=== PATIENT | female | born 1955 | race Caucasian/White ===

== ENCOUNTER 2017-08-21 20:21 | Emergency (ER) | payer OTHER ==
[2017-08-21 22:03] LABS: ABS Basophils 0.1 10^3/ul (0-0.2); ABS Eosinophils 0.1 10^3/ul (0-0.6); ABS Monocytes 0.7 10^3/ul (0-0.8); ABS Neutrophils 14.2 10^3/ul (1.5-7.7); ABS Nucleated RBC 0 10^3/ul; Eosinophil % 0.4 % (0-6); Hematocrit 46 % (35-47); Hemoglobin 15.6 g/dl (12.0-16.0); Lymphocyte % 6.4 % (25-47); Mean Corpuscular HGB Conc 34 g/dl (31-36); Mean Corpuscular Hemoglobin 30 pg (27-31); Mean Corpuscular Volume 89 fL (80-97); Mean Platelet Volume 8 um3 (7.4-10.4); Nucleated Red Blood Cells % 0; Platelet Count 300 10^3/ul (150-450); Red Blood Count 5.13 10^6/ul (4.0-5.4); Red Cell Distribution Width 13 % (10.5-15)
[2017-08-21 22:19] LABS: EGFR Non-African American 78.3 (>60)
[2017-08-21 22:39] LABS: Urine Appearance Clear; Urine Blood 2+ (Negative); Urine Color Yellow; Urine Ketones Negative (Negative); Urine Protein Negative (Negative); Urine Specific Gravity 1.017 (1.010-1.030); Urine Urobilinogen Negative (Negative)
[2017-08-22] MEDS ORDERED: NS 0.9% 1000 ML* 1,000 ML IV ONE (01:25)
[2017-08-22] MEDS ORDERED: Pantoprazole IV* 40 MG IV ONE (01:25)
[2017-08-22] MEDS ORDERED: Morphine INJ* 4 MG/ML 1 ML CARPUJECT IV ONE (03:12)
[2017-08-22] MEDS ORDERED: Ondansetron INJ* 2 MG/ML VIAL IV ONE (03:12)
--- NOTE | 2017-08-22 06:51 | ED ---
Dawson Dangelo Nilda, scribed for Christi Garsia MD on 08/22/17 at 0327 . Abdominal Pain/Female - HPI Summary HPI Summary: This patient is a 62 year old F presenting from [facility] to [facility] with a chief complaint of constant epigastric pain since last night. The patient rates the pain 6/10 in severity. Symptoms aggravated by nothing and alleviated by rubbing abd. Patient reports nausea. She denies abnormal urination and back pain. - History of Current Complaint Chief Complaint: EDAbdPain Stated Complaint: ABD PAIN Time Seen by Provider: 08/22/17 01:10 Hx Obtained From: Patient Onset/Duration: Sudden Onset, Lasting Hours, Still Present Timing: Constant Severity Currently: Moderate Pain Intensity: 6 Pain Scale Used: 0-10 Numeric Location: Epigastric Radiates: No Aggravating Factor(s): Nothing Alleviating Factor(s): Other: - rubbing abdomen Associated Signs and Symptoms: Positive: Other: - nausea; negative abnormal urination and back pain Allergies/Adverse Reactions: Allergies Allergy/AdvReac Type Severity Reaction Status Date / Time No Known Allergies Allergy Verified 08/21/17 20:52 PMH/Surg Hx/FS Hx/Imm Hx Sensory History: Denies: Hx Legally Blind EENT History: Denies: Hx Deafness Infectious Disease History: No Infectious Disease History: Denies: Traveled Outside the [place] in Last 30 Days - Family History Known Family History: Positive: Hypertension - Social History Alcohol Use: None Substance Use Type: Reports: None Smoking Status (MU): Never Smoked Tobacco Review of Systems Positive: Abdominal Pain, Nausea Positive: other - negative abnormal urination Positive: Other - negative back pain All Other Systems Reviewed And Are Negative: Yes Physical Exam - Summary Physical Exam Summary: VITAL SIGNS: Reviewed. GENERAL: Patient is a well-developed and nourished female who is lying comfortable in the stretcher. Patient is not in any acute respiratory distress. HEAD AND FACE: No signs of trauma. No ecchymosis, hematomas or skull depressions. No sinus tenderness. EYES: PERRLA, EOMI x 2, No injected conjunctiva, no nystagmus. EARS: Hearing grossly intact. Ear canals and tympanic membranes are within normal limits. MOUTH: Oropharynx within normal limits. NECK: Supple, trachea is midline, no adenopathy, no JVD, no carotid bruit, no c- spine tenderness, neck with full ROM. CHEST: Symmetric, no tenderness at palpation LUNGS: Clear to auscultation bilaterally. No wheezing or crackles. CVS: Regular rate and rhythm, S1 and S2 present, no murmurs or gallops appreciated. ABDOMEN: Soft,epigastric tenderness. No signs of distention. No rebound no guarding, and no masses palpated. Bowel sounds are normal. EXTREMITIES: FROM in all major joints, no edema, no cyanosis or clubbing. NEURO: Alert and oriented x 3. No acute neurological deficits. Speech is normal and follows commands. Triage Information Reviewed: Yes Vital Signs On Initial Exam: Initial Vitals Temp Pulse Resp BP Pulse Ox 99.2 F 55 20 202/80 97 08/21/17 20:51 08/21/17 20:51 08/21/17 20:51 08/21/17 20:51 08/21/17 20:51 Vital Signs Reviewed: Yes - Simpson Coma Scale Coma Scale Total: 15 Diagnostics - Vital Signs Vital Signs Temp Pulse Resp BP Pulse Ox 08/21/17 22:13 98 F 56 99 08/21/17 20:51 99.2 F 55 20 97 - Laboratory Lab Results: Lab Results 08/21/17 08/21/17 08/21/17 Range/Units 21:50 21:50 21:50 WBC 16.0 H (3.5-10.8) 10^3/ul RBC 5.13 (4.0-5.4) 10^6/ul Hgb 15.6 (12.0-16.0) g/dl Hct 46 (35-47) % MCV 89 (80-97) fL MCH 30 (27-31) pg MCHC 34 (31-36) g/dl RDW 13 (10.5-15) % Plt Count 300 (150-450) 10^3/ul MPV 8 (7.4-10.4) um3 Neut % (Auto) 88.7 H (38-83) % Lymph % (Auto) 6.4 L (25-47) % [place] % (Auto) 4.2 (1-9) % Eos % (Auto) 0.4 (0-6) % Baso % (Auto) 0.3 (0-2) % Absolute Neuts (auto) 14.2 H (1.5-7.7) 10^3/ul Absolute Lymphs (auto) 1.0 (1.0-4.8) 10^3/ul Absolute Monos (auto) 0.7 (0-0.8) 10^3/ul Absolute Eos (auto) 0.1 (0-0.6) 10^3/ul Absolute Basos (auto) 0.1 (0-0.2) 10^3/ul Absolute Nucleated RBC 0 10^3/ul Nucleated RBC % 0 Sodium 133 (133-145) mmol/L Potassium 3.4 L (3.5-5.0) mmol/L Chloride 100 L (101-111) mmol/L Carbon Dioxide 26 (22-32) mmol/L Anion Gap 7 (2-11) mmol/L BUN 17 (6-24) mg/dL Creatinine 0.75 (0.51-0.95) mg/dL Est GFR ( Amer) 100.7 (>60) Est GFR (Non-Af Amer) 78.3 (>60) BUN/Creatinine Ratio 22.7 H (8-20) Glucose 162 H (70-100) mg/dL Lactic Acid 1.1 (0.5-2.0) mmol/L Calcium 9.1 (8.6-10.3) mg/dL Total Bilirubin 0.40 (0.2-1.0) mg/dL AST 15 (13-39) U/L ALT 28 (7-52) U/L Alkaline Phosphatase 70 (34-104) U/L C-Reactive Protein 2.10 (< 5.00) mg/L Total Protein 6.8 (6.4-8.9) g/dL Albumin 3.8 (3.2-5.2) g/dL Globulin 3.0 (2-4) g/dL Albumin/Globulin Ratio 1.3 (1-3) Lipase 16 (11.0-82.0) U/L Urine Color Urine Appearance Urine pH (5-9) Ur Specific [place] (1.010-1.030) Urine Protein (Negative) Urine Ketones (Negative) Urine Blood (Negative) Urine Nitrate (Negative) Urine Bilirubin (Negative) Urine Urobilinogen (Negative) Ur Leukocyte Esterase (Negative) Urine WBC (Auto) (Absent) Urine RBC (Auto) (Absent) Ur Squamous Epith Cells (Absent) Urine Bacteria (Absent) Urine Glucose (Negative) 08/21/17 08/22/17 Range/Units 22:19 02:06 WBC (3.5-10.8) 10^3/ul RBC (4.0-5.4) 10^6/ul Hgb (12.0-16.0) g/dl Hct (35-47) % MCV (80-97) fL MCH (27-31) pg MCHC (31-36) g/dl RDW (10.5-15) % Plt Count (150-450) 10^3/ul MPV (7.4-10.4) um3 Neut % (Auto) (38-83) % Lymph % (Auto) (25-47) % [place] % (Auto) (1-9) % Eos % (Auto) (0-6) % Baso % (Auto) (0-2) % Absolute Neuts (auto) (1.5-7.7) 10^3/ul Absolute Lymphs (auto) (1.0-4.8) 10^3/ul Absolute Monos (auto) (0-0.8) 10^3/ul Absolute Eos (auto) (0-0.6) 10^3/ul Absolute Basos (auto) (0-0.2) 10^3/ul Absolute Nucleated RBC 10^3/ul Nucleated RBC % Sodium (133-145) mmol/L Potassium (3.5-5.0) mmol/L Chloride (101-111) mmol/L Carbon Dioxide (22-32) mmol/L Anion Gap (2-11) mmol/L BUN (6-24) mg/dL Creatinine (0.51-0.95) mg/dL Est GFR ( Amer) (>60) Est GFR (Non-Af Amer) (>60) BUN/Creatinine Ratio (8-20) Glucose (70-100) mg/dL Lactic Acid 1.2 (0.5-2.0) mmol/L Calcium (8.6-10.3) mg/dL Total Bilirubin (0.2-1.0) mg/dL AST (13-39) U/L ALT (7-52) U/L Alkaline Phosphatase (34-104) U/L C-Reactive Protein (< 5.00) mg/L Total Protein (6.4-8.9) g/dL Albumin (3.2-5.2) g/dL Globulin (2-4) g/dL Albumin/Globulin Ratio (1-3) Lipase (11.0-82.0) U/L Urine Color Yellow Urine Appearance Clear Urine pH 5.0 (5-9) Ur Specific [place] 1.017 (1.010-1.030) Urine Protein Negative (Negative) Urine Ketones Negative (Negative) Urine Blood 2+ H (Negative) Urine Nitrate Negative (Negative) Urine Bilirubin Negative (Negative) Urine Urobilinogen Negative (Negative) Ur Leukocyte Esterase Negative (Negative) Urine WBC (Auto) Trace(0-5/hpf) (Absent) Urine RBC (Auto) 2+(6-10/hpf) H (Absent) Ur Squamous Epith Cells Present H (Absent) Urine Bacteria Absent (Absent) Urine Glucose Negative (Negative) Result Diagrams: 08/21/17 21:50 08/21/17 21:50 Lab Statement: Any lab studies that have been ordered have been reviewed, and results considered in the medical decision making process. - CT Abd/Pel CT Interpretation Completed By: Radiologist - Possible cholecystitis can be further evaluated with ultrasound. Dr. Garsia has reviewed this report. Re-Evaluation - Re-Evaluation First Eval Comment: Discussed pt CT findings. Pt states pain still there though slightly better. Abdominal Pain Fem Course/Dx - Course Course Of Treatment: Pt is a 62 y/o F c/o epigastric pain since 1900 last night. On exam pt had epigastric tenderness. Labs reveal high white count, leukocytosis. CT reveal gall stones and possible cholecystitis. Pt will have US for further evaluation in the morning. Dx cholelithiasis. Pt is s/o to Dr. Dean, pending dispo, awaiting US abd. - Diagnoses Provider Diagnoses: Cholelithiasis Discharge - Discharge Plan Condition: Stable Disposition: OTHER Discharge Disposition Comment: s/o to Dr. Dean, pending dispo, awaiting US Abd. Referrals: No Primary Care Phys,NOPCP [Primary Care Provider] - The documentation as recorded by the Dawson andre Nilda accurately reflects the service I personally performed and the decisions made by , Christi Garsia MD.
--- NOTE | 2017-08-22 08:31 | RAD ---
INDICATION: Abdominal pain. COMPARISON: August 22, 2017 RIGHT upper quadrant ultrasound remarkable for cholelithiasis. TECHNIQUE: Multidetector CT images were obtained from the lung bases to the ischial tuberosities. Evaluation of the viscera is limited without IV contrast. Multiplanar reformation. REPORT: Unremarkable visualized inferior thorax. Unremarkable liver. Cholelithiasis including a 0.9 cm stone at the neck of the gallbladder without additional CT abnormality of the gallbladder. Negative for biliary dilatation. Unremarkable pancreas and spleen. Negative for CT abnormality of the upper GI, small bowel, or retrocecal appendix. Severe diverticulosis of the colon most prominent at the sigmoid colon without findings of acute diverticulitis. Negative for ascites, free air, hernias. Unremarkable adrenal glands. 1.8 cm cortical cyst upper pole LEFT kidney. Negative for nephrolithiasis or hydronephrosis. Unremarkable nondilated ureters and largely decompressed urinary bladder. Unremarkable anteverted uterus and adnexal regions. Upper normal size external iliac lymph nodes. Negative for lymphadenopathy. Normal diameter abdominal aorta and iliac arteries with mild calcific plaque. Physiologic distention of the IVC. 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 Negative for suspicious focal osseous lesions. IMPRESSION: 1. Distended gallbladder with cholelithiasis including a 0.9 cm stone at the neck of the gallbladder without additional CT abnormality of the gallbladder. Negative for biliary dilatation. 2. Normal appendix documented. 3. Colonic diverticulosis without findings of acute diverticulitis. 4. Negative for obstructive uropathy.
--- NOTE | 2017-08-22 08:32 | RAD ---
HISTORY: Right upper quadrant pain COMPARISONS: None TECHNIQUE: Multiple transverse and longitudinal ultrasound images were obtained of the right upper quadrant of the abdomen using grayscale and color Doppler imaging. FINDINGS: LIVER: The liver is diffusely echogenic and coarse in echotexture, with decreased acoustic transmission. The liver is otherwise normal in shape, size, and contour. There is normal hepatopedal flow of the portal vein on Doppler imaging. BILIARY TREE: There is no intrahepatic or extrahepatic biliary dilatation. The common duct measures 0.4 cm. GALLBLADDER: The gallbladder is distended. Multiple shadowing echogenic foci consistent with gallstones are noted, including a 2.4 cm calculus of the gallbladder neck. There is no gallbladder wall thickening, pericholecystic fluid, or sonographic Walden sign. PANCREAS: The head of the pancreas is unremarkable. The tail of the pancreas is not well visualized secondary to overlying bowel gas. RIGHT KIDNEY: The right kidney is normal in shape, size, contour, and echogenicity. There is no hydronephrosis or nephrolithiasis. The right kidney measures 11.1 x 4.4 x 5.7 cm. AORTA AND IVC: The aorta and IVC are unremarkable. FLUID: There are no pleural effusions. There is no free fluid within the hepatorenal recess. OTHER FINDINGS: None. IMPRESSION: CHOLELITHIASIS, WITHOUT SONOGRAPHIC FEATURES OF ACUTE CHOLECYSTITIS
--- NOTE | 2017-08-22 11:03 | ED ---
Aldair Dangelo Angela, sindhuibyusuf for Juan Dean MD on 08/22/17 at 0719 . Progress - Progress Note Progress Note: This pt was signed out by Dr. Garsia, pending disposition, awaiting US abdomen. Pt is a 62 y/o female presenting to [facility] c/o epigastric pain since last night. Physical Exam: General: well-appearing, no pain distress Skin: warm, color reflects adequate perfusion, dry Head: normal Eyes: EOMI, BERTHA ENT: normal Neck: supple, nontender, nondistended Respiratory: CTA, breath sounds present Cardiovascular: RRR Abdomen: soft, nontender Bowel: present Musculoskeletal: normal, strength/ROM intact Neurological: normal, sensory/motor intact, A&O x3 Psychological: affect/mood appropriate US Abdomen, as read by radiologist: IMPRESSION: Cholelithiasis, without sonographic features of acute cholecystitis. Dr. Dean has reviewed this radiology report. Pt will be discharged to home in stable condition. Re-Evaluation - Re-Evaluation First Eval Re-Evaluation Time: 09:31 Comment: I discussed the abdomen US and lab results with the pt. She denies any pain. She tolerated a little bit of water. Course/Dx - Course Course Of Treatment: DISCUSSED RESULTS WITH PATIENT. PAIN FREE AND ABDOMEN NON TENDER AT DISCHARGE. F/U SURGERY; RETURN IF WORSE. The documentation as recorded by the Aldair andre Angela accurately reflects the service I personally performed and the decisions made by me, Juan Dean MD.
[2017-08-22 11:27] VITALS: BP 122/54
== END 2017-08-22 11:27 | disposition home or self-care (01) ==
LOC: ED 20:21
DX: K80.20 Calculus of gallbladder without cholecystitis without obstruction (principal); R10.13 Epigastric pain; R11.0 Nausea
CPT/HCPCS: 36415; 74176; 76705; 80053; 81003; 81015; 83605; 83690; 85025; 86140; 96374; 96375; 99283; J2270; J2405